=== PATIENT | male | born 1990 | race Caucasian/White ===

== ENCOUNTER 2019-03-23 22:20 | Emergency (ER) | payer OTHER ==
[2019-03-23 22:25] VITALS: Ht 175.3 cm
[2019-03-23 23:11] VITALS: BP 161/94
== END 2019-03-23 23:11 | disposition home or self-care (01) ==
LOC: ED 22:20
DX: S02.5XXA Fracture of tooth (traumatic), initial encounter for closed fracture (principal); E11.9 Type 2 diabetes mellitus without complications; X58.XXXA Exposure to other specified factors, initial encounter; Y93.89 Activity, other specified; Y92.89 Other specified places as the place of occurrence of the external cause; Y99.8 Other external cause status